=== PATIENT | male | born 1995 | race Hispanic/Latino ===

== ENCOUNTER 2020-05-06 20:17 | Emergency (ER) | payer OTHER ==
[2020-05-06] MEDS ORDERED: Ketorolac Tromethamine 30 MG/ML VIAL ONE (22:03)
[2020-05-06 22:33] LABS: #Neutrophils 10.2 10x3/uL (1.5-8.4); %Basophils 0.2 % (0.0-2.0); %Eosinophils 0.2 % (0.0-6.0); %Lymphocytes 10.3 % (18.0-47.0); %Neutrophils 80.6 % (40.0-75.0); Hemoglobin 14.9 g/dL (13.5-17.5); Mean Corpuscular HGB CONC 33.3 g/dL (32.0-36.0); Mean Corpuscular Hemoglobin 27.2 pg (27.0-33.0); Mean Corpuscular Volume 81.7 fl (81.2-95.1); Mean Platelet Volume 9.9 fl (7.4-10.4); Platelet Count 214 10x3/uL (150-450); RBC Distribution Width 13.5 % (11.5-14.5); Red Blood Cell (RBC) Count 5.47 10x6/uL (4.32-5.72); White Blood Cell (WBC) Count 12.7 10x3/uL (3.5-10.5)
[2020-05-06 22:43] LABS: Mononucleosis NEGATIVE (NEGATIVE)
[2020-05-06 22:44] LABS: MONO NEGATIVE CONTROL ZONE White (Negative) (White); MONO POSITIVE CONTROL Pink Line (Positive) (PINK/RED)
[2020-05-07 14:35] LABS: SARS-CoV-2 PCR by NAA Not Detected (NotDetected)
== END 2020-05-07 01:39 | disposition home or self-care (01) ==
LOC: CSHERS 20:17
DX: B34.9 Viral infection, unspecified (principal); Z20.822 Contact with and (suspected) exposure to COVID-19; G40.909 Epilepsy, unspecified, not intractable, without status epilepticus; Z79.899 Other long term (current) drug therapy
CPT/HCPCS: 83605; 85025; 86140; 86308; 87635; 87804; 96374; J1885; U0003; U0005